=== PATIENT | male | born 1995 | race American Indian/Alaskan Native ===

== ENCOUNTER 2020-08-11 14:38 | Emergency (ER) | payer SELFPAY | END 2020-08-11 15:38 | disposition left against medical advice (07) | LOC: ED 14:38 | DX: S31.812A Laceration with foreign body of right buttock, initial encounter (principal); Z53.21 Procedure and treatment not carried out due to patient leaving prior to being seen by health care provider; X58.XXXA Exposure to other specified factors, initial encounter; Y93.89 Activity, other specified; Y92.89 Other specified places as the place of occurrence of the external cause; Y99.8 Other external cause status ==